=== PATIENT | male | born 1995 | race African-American/Black ===

== ENCOUNTER 2016-04-15 09:32 | Emergency (ER) | payer SELFPAY ==
[~2016-04-15] VITALS: Ht 177.8 cm; Wt 70.0 kg
[~2016-04-15 09:32] MED LIST: CLIN1CAP6 PO
[2016-04-15 09:35] VITALS: BP 118/60; PULSE 58; RESP 16; TEMP 97.8; O2SAT 98
[2016-04-15] MEDS ORDERED: IBUP800T23 PO (10:00)
[2016-04-15] MEDS ORDERED: BACT800T5 PO (10:00)
[2016-04-15] MEDS ORDERED: CEPH-460 PO (10:00)
[2016-04-15] MEDS ORDERED: TETANUS/DIPHTHERIA TOXOID ADULT 0.5 ML VIAL IM ONE (10:00)
--- NOTE | 2016-04-15 10:00 | PD ---
HPI Chief Complaint: Skin Problem Time Seen by Provider: 09:58 Travel History International Travel<30 days: No Contact w/Intl Traveler<30days: No Traveled to known affect area: No History of Present Illness HPI 20-year-old male presents to the emergency department with complaint of a large pimple-like lump to his left knee that busted open and is draining purulent drainage. He noticed it there yesterday and it started draining today. Denies fever, chills, nausea, vomiting. Denies knee pain, erythema, edema. Denies paresthesias, decreased range of motion, decreased strength, loss of sensation to the affected extremity. Has not taken any medications or tried any treatments to relieve the symptoms. No known relieving or aggravating factors. Does not know if he is up-to-date on his tetanus vaccination. Denies allergies. Denies significant past medical history. No other modifying factors or associated signs and symptoms. PFSH Past Medical History Medical History: Denies Significant Hx Asthma: No Blood Disorders: No Heart Rhythm Problems: No Hypertension: No Seizures: No Social History Alcohol Use: No Tobacco Use: No Substance Use: No Allergies-Medications (Allergen,Severity, Reaction): Coded Allergies: No Known Allergies (Verified , 04/15/16) Reported Meds & Prescriptions Reported Meds & Active Scripts Active Ibuprofen 800 Mg Tab 800 Mg PO Q6HR PRN Bactrim DS (Sulfamethoxazole-Trimethoprim) 800-160 Mg Tab 1 Tab PO BID 10 Days Keflex (Cephalexin) 500 Mg Cap 500 Mg PO Q6H 10 Days Review of Systems Except as stated in HPI: all other systems reviewed are Neg Physical Exam Narrative GENERAL: Well-nourished, well-developed male patient, in no acute distress; afebrile, nontoxic-appearing SKIN: There is an open wound to the left knee that appears to be a draining abscess which measures about 1.5 cm in diameter. It is draining purulent drainage. There is no zone of inflammation around it. The left knee is with full range of motion and without erythema, edema; no signs of septic joint. HEAD: Atraumatic. Normocephalic. EYES: Pupils equal and round. No scleral icterus. No injection or drainage. ENT: Mucosa pink and moist. Airway patent. NECK: Trachea midline. CARDIOVASCULAR: Regular rate. RESPIRATORY: No accessory muscle use. GASTROINTESTINAL: Flat. MUSCULOSKELETAL: No obvious deformities. No clubbing. No cyanosis. No edema. NEUROLOGICAL: Awake and alert. Oriented 3. No obvious cranial nerve deficits. Motor grossly within normal limits. Normal speech. PSYCHIATRIC: Appropriate mood and affect; insight and judgment normal. Data Data Last Documented VS Vital Signs Date Time Temp Pulse Resp B/P Pulse Ox O2 Delivery O2 Flow Rate FiO2 04/15/16 09:35 97.8 58 16 118/60 98 Room Air Orders Wound Culture And Gram Stain (04/15/16 10:00) Wound Care (04/15/16 10:00) Tetanus/Diphtheria Tox Adult (Tetanus/Di (04/15/16 10:00) MDM Medical Decision Making Medical Screen Exam Complete: Yes Emergency Medical Condition: Yes Medical Record Reviewed: Yes Differential Diagnosis Abscess, cellulitis, abrasion Narrative Course 20-year-old male physical exam consistent with a purulent abscess to the left knee. Patient is afebrile and nontoxic-appearing. He denies fever, chills, nausea, vomiting. Wound culture pending. Tetanus updated in the ER. Area was cleaned with normal saline and bandage applied. Keflex, Bactrim, ibuprofen prescribed for home. Patient is medically cleared and stable for discharge. Discussed reasons to return to the emergency department. Instructed patient to follow up with primary care provider. Patient agrees with treatment plan. The patients vital signs are stable and the patient is stable for outpatient follow- up and treatment. Patient discharged home, stable and in no acute distress. Diagnosis Primary Impression: Purulent abscess Referrals: Primary Care Physician Patient Instructions: Abscess (ED), Abscess Follow-up (ED), Acute Wound Care ( ED), General Instructions Departure Forms: Tests/Procedures, Work Release Enter return to work date: Apr 16, 2016 Additional Instructions: Complete full course of antibiotics Warm compresses to the affected area Keep area clean and dry Ibuprofen or Tylenol as directed and as needed for pain and inflammation Follow-up with primary care provider Return to emergency department immediately with worsening of symptoms Med/Other Pt SpecificInfo: Prescription(s) given Scripts Ibuprofen 800 Mg [id number] Mg PO Q6HR PRN (PAIN) #30 TAB Ref 0 Prov:Sanjana Reynoso 04/15/16 Sulfamethoxazole-Trimethoprim (Bactrim DS)800-160 Mg Tab1 Tab PO BID 10 Days Ref 0 Prov:Sanjana Reynoso 04/15/16 Cephalexin (Keflex)500 Mg [id number] Mg PO Q6H 10 Days Ref 0 Prov:Sanjana Reynoso 04/15/16 Disposition: 01 DISCHARGE HOME Condition: Stable Sanjana Reynoso Apr 15, 2016 10:00
== END 2016-04-15 10:15 | disposition home or self-care (01) ==
LOC: NEPB 09:32
DX: L02.416 Cutaneous abscess of left lower limb (principal); B95.62 Methicillin resistant Staphylococcus aureus infection as the cause of diseases classified elsewhere
CPT/HCPCS: 86403; 87070; 87186; 99283